=== PATIENT | male | born 1980 | race Caucasian/White ===

== ENCOUNTER 2021-04-29 | Emergency (ER) | payer OTHER ==
[2021-04-29] MEDS ORDERED: methylPREDNISolone Sodium Succinate 125 MG/2 ML SDV IVPUSH ONE (00:17)
[2021-04-29] MEDS ORDERED: EPINEPHrine 1 MG/ML SDV SUBCUT ONE (00:17)
[2021-04-29] MEDS ORDERED: diphenhydrAMINE 50 MG/ML SDV IVPUSH ONE (00:17)
--- NOTE | 2021-04-29 00:20 | EDM.PDOC ---
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 A sensation of fullness in his throat, shortness of breath, a rash on his chest and under his arms. No pain. He does not have his EpiPen with him, he took 50 mg of Benadryl orally. He is stable. Onset: Sudden Duration: Hour(s): (Symptoms started fairly suddenly about an hour ago) Location: Reports: Generalized Associated Symptoms: Reports: Malaise. Denies: Confusion, Chest Pain, Cough, Diaphoresis denies Pain Score (Numeric/FACES): 0 - Related Data Allergies Allergy/AdvReac Type Severity Reaction Status Date / Time nut - unspecified Allergy Rash Verified 04/29/21 00:16 wheat Allergy Rash Verified 04/29/21 00:16 Home Meds: Home Meds Omeprazole Magnesium [Prilosec Otc] 20 mg PO DAILY 04/29/21 [History] lisinopriL [Lisinopril] 40 mg PO DAILY 04/29/21 [History] ED ROS ALLERGIC REACTION - Review of Systems Review Of Systems: See Below Constitutional: Reports: Malaise. Denies: Fever, Chills HEENT: Reports: Other (Throat feels mildly swollen) Respiratory: Denies: Shortness of Breath, Wheezing Cardiovascular: Denies: Chest Pain GI/Abdominal: Denies: Abdominal Pain, Nausea, Vomiting Skin: Reports: Rash Neurological: Denies: Headache Psychiatric: Reports: No Symptoms ED EXAM GENERAL NO PERIP PULSE - Physical Exam Exam: See Below Exam Limited By: No Limitations General Appearance: Alert, No Apparent Distress, Anxious Eye Exam: Bilateral Eye: Normal Inspection Throat/Mouth: Normal Inspection Respiratory/Chest: No Respiratory Distress, Lungs Clear Cardiovascular: Regular Rate, Rhythm, Tachycardia Extremities: No: Pedal Edema Neurological: Alert, Oriented Skin Exam: Warm, Dry, Erythema (Some scattered patches of erythema on the chest, upper back and extremities) Course - Vital Signs Last Recorded V/S: Last Vital Signs Temp 97.7 F 04/29/21 01:21 Pulse 96 04/29/21 01:21 Resp 20 04/29/21 01:21 BP 131/82 04/29/21 01:21 Pulse Ox 96 04/29/21 01:21 - Orders/Labs/Meds Meds: Medications Discontinued Medications Generic Name Dose Route Start Last Admin Trade Name Rafita PRN Reason Stop Dose Admin Diphenhydramine HCl 25 mg 04/29/21 00:17 04/29/21 00:30 Diphenhydramine 50 Mg/Ml Sdv IVPUSH 04/29/21 00:18 25 mg ONETIME ONE Administration Epinephrine HCl 0.5 mg 04/29/21 00:17 04/29/21 00:28 Epinephrine 1 Mg/Ml Sdv SUBCUT 04/29/21 00:18 0.5 mg ONETIME ONE Administration Methylprednisolone Sodium Succinate 125 mg 04/29/21 00:17 04/29/21 00:27 Methylprednisolone Sodium Succinate 125 Mg/2 Ml Sdv IVPUSH 04/29/21 00:18 125 mg ONETIME ONE Administration - Re-Assessments/Exams Free Text/Narrative Re-Assessment/Exam: 04/29/21 01:24 This patient likely is improving with the Benadryl, an IV was started and he was given 25 additional milligrams of Benadryl, 125 mg of Solu-Medrol and 0.5 mg of subcutaneous epinephrine. He was observed for an hour and did extremely well. He was back to baseline on discharge, he was given a prescription for an EpiPen to fill while he is up here on vacation and can continue Benadryl as needed. Departure - Departure Time of Disposition: 01:30 Disposition: Home, Self-Care 01 Clinical Impression: Allergic reaction Qualifiers: Encounter type: initial encounter Qualified Code(s): T78.40XA - Allergy, unspecified, initial encounter - Discharge Information Instructions: Allergies, Adult, [id number] Referrals: PCP,None [Primary Care Provider] - Forms: ED Department Discharge Care Plan Goals: Try to avoid allergy provoking substances and use EpiPen if symptoms recur and are significant. Repeating Benadryl 50 mg every 4-6 hours may be helpful if symptoms persist. Sepsis Event Note (ED) - Focused Exam Vital Signs: Vital Signs Temp Pulse Resp BP Pulse Ox 04/29/21 01:21 97.7 F 96 20 131/82 96 04/29/21 00:31 97.7 F 114 H 20 149/75 H 96
== END 2021-04-29 01:30 | disposition home or self-care (01) ==
LOC: JP.ED
DX: T78.1XXA Other adverse food reactions, not elsewhere classified, initial encounter (principal); Z79.899 Other long term (current) drug therapy
CPT/HCPCS: 96372; 96374; 96375; 99283; J0171; J1200; J2930; 99284